=== PATIENT | female | born 1950 | race Caucasian/White ===

== ENCOUNTER 2017-02-18 14:32 | Inpatient (IN) | payer OTHER, MEDICARE ==
[~2017-02-18] VITALS: Ht 167.6 cm; Wt 59.2 kg
[~2017-02-18 14:32] MED LIST: CARI350T20 PO; DULO1CAP3 PO
[2017-02-25] MEDS ORDERED: CALCTAB80 PO (12:01)
[2017-02-25] MEDS ORDERED: DENO60P SQ (12:01)
[2017-02-25] MEDS ORDERED: HYDR-3583 PO (12:01)
[2017-02-25] MEDS ORDERED: CLON2TAB PO (12:01)
[2017-02-25] MEDS ORDERED: CENTTAB PO (12:01)
[2017-02-25] MEDS ORDERED: DICL50TA PO (12:01)
[2017-02-28] MEDS ORDERED: ceFAZolin 2 GM PREMIX 50 ML ONE (05:52)
[2017-02-28] MEDS ORDERED: VANCOMYCIN HCL 1000 MG VIAL ONE (05:53)
[2017-02-28] MEDS ORDERED: SODIUM CHLOR 0.9% 250 ML INJ 250 ML ONE (05:53)
[2017-02-28 06:03] VITALS: BP 140/88; PULSE 67; RESP 20; TEMP 98; O2SAT 100
[2017-02-28] MEDS ORDERED: GENTAMICIN SULFATE 80 MG/2 ML VIAL ONE (06:05)
[2017-02-28] MEDS ORDERED: CHLORHEXIDINE GLUCONATE 2 % 1 PACK (2 CLOTHS) TOPICAL PRN (06:15)
[2017-02-28] MEDS ORDERED: SODIUM CHLORID 0.9% 500 ML IV PRN (06:15)
[2017-02-28] MEDS ORDERED: LACTATED RINGER'S 1000 ML IV PRN (06:15)
[2017-02-28] MEDS ORDERED: POVIDONE IODINE 5% (ANTISEPSIS KIT) 4 APPLICATIONS EACH NARE PRN (06:15)
[2017-02-28] MEDS ORDERED: METOPROLOL TARTRATE 25 MG TAB PO PRN (06:15)
[2017-02-28] MEDS ORDERED: INSULIN HUMAN REGULAR 1,000 UNITS/10 ML VIAL SQ PRN (06:15)
[2017-02-28] MEDS ORDERED: SODIUM CHLORIDE 0.9% IV SCH (06:30)
[2017-02-28] MEDS ORDERED: ceFAZolin 2 GM PREMIX 50 ML IV SCH (06:30)
[2017-02-28] MEDS ORDERED: VANCOMYCIN 1000 MG/NS 250 ML (for <70 kg) IV SCH ×2 (06:30)
[2017-02-28] MEDS ORDERED: EXPAREL PERI-ARTICULAR INJECTION (TOTAL VOL. 60 ML) P-ARTICULR SCH ×2 (06:30)
[2017-02-28] MEDS ORDERED: POVIDONE IODINE 7.5% SCRUB 118 ML BOTTLE TOPICAL SCH (06:30)
[2017-02-28] MEDS ORDERED: TRANEXAMIC PERI-ARTICULAR 3,000 MG/NS 100 ML P-ARTICULR SCH ×2 (06:30)
[2017-02-28] MEDS ORDERED: CHLORHEXIDINE GLUCONATE 4% SOLN 120 ML BTL TOPICAL SCH (06:30)
[2017-02-28] MEDS ORDERED: TRANEXAMIC ACID IV SCH (06:30)
[2017-02-28] MEDS ORDERED: MIDAZOLAM HCL 5 MG/5 ML VIAL ONE (06:41)
[2017-02-28] MEDS ORDERED: DEXAMETHASONE SOD PHOS PF 10 MG/ML VIAL ONE (06:43)
[2017-02-28] MEDS ORDERED: DEXAMETHASONE SOD PHOS 20 MG/5 ML VIAL ONE (06:44)
[2017-02-28] MEDS ORDERED: fentaNYL CITRATE 250 MCG/5 ML AMP ONE (06:52)
[2017-02-28] MEDS ORDERED: ACETAMINOPHEN 1000 MG/100 ML VIAL IV ONE (06:53)
[2017-02-28] MEDS: SODIUM CHLOR 0.9% 1000 ML INJ 1,000 ML IV SCH ×2 (07:00→17:50)
[2017-02-28] MEDS ORDERED: HYDR-3288 PO (07:11)
[2017-02-28] MEDS ORDERED: ENOX30P SQ (07:11)
[2017-02-28] MEDS ORDERED: ASPI81TA2 PO (07:12)
[2017-02-28] MEDS ORDERED: ACETAMINOPHEN/HYDROcodone 325 MG/7.5 MG TAB PO PRN (07:15)
[2017-02-28] MEDS ORDERED: NALOXONE HCL 0.4 MG/ML AMP IV PRN (07:15)
[2017-02-28] MEDS ORDERED: BISACODYL 10 MG SUPP RECTAL PRN (07:15)
[2017-02-28] MEDS ORDERED: ZOLPIDEM TARTRATE 5 MG TAB PO PRN (07:15)
[2017-02-28] MEDS ORDERED: diphenhydrAMINE HCL 50 MG/ML VIAL IV PRN (07:15)
[2017-02-28] MEDS ORDERED: ONDANSETRON HCL 4 MG/2 ML VIAL IVP PRN (07:15)
[2017-02-28] MEDS ORDERED: Post-op Orders (for Pharmacy) MISC XX ONE (07:15)
[2017-02-28] MEDS ORDERED: HYDROmorphone HCL PF 2 MG/ML VIAL IV PRN (07:15)
[2017-02-28] MEDS ORDERED: SODIUM CHLORIDE 0.9% FLUSH 10 ML FLUSH IV FLUSH PRN (07:30)
[2017-02-28] MEDS ORDERED: HYDROmorphone HCL PF 2 MG/ML VIAL ONE (08:42)
[2017-02-28] MEDS: DULoxetine HCl DR 60 MG CAP PO SCH (09:00)
[2017-02-28] MEDS: SODIUM CHLORIDE 0.9% FLUSH 10 ML FLUSH IV FLUSH SCH ×2 (09:00→21:00)
[2017-02-28] MEDS ORDERED: *morphine SULFATE 8 MG/ML PERIprocedure ONLY ONE ×3 (09:32→10:23)
[2017-02-28] MEDS ORDERED: *MEPERIDINE 25 MG INJ VIAL PERIprocedural Use ONLY ONE (09:38)
--- NOTE | 2017-02-28 10:14 | RADRPT ---
EXAM DATE/TIME: 02/28/2017 09:41 [facility] COMPARISON: No previous studies available for comparison. INDICATIONS : Post hip replacement. MEDICAL HISTORY : None. SURGICAL HISTORY : Total right hip. ENCOUNTER: Initial ACUITY: 1 day PAIN SCORE: Non-responsive. LOCATION: Left hip. FINDINGS: The patient is status post a total hip arthroplasty with a bipolar prosthesis. Prosthesis is well-sea pancho. Alignment is anatomic. A fracture is not appreciated. Previous arthroplasty is present on the r ight. CONCLUSION: Anatomic alignment. Celio Jeronimo MD FACR Board Certified Radiologist. This report was verified electronically.
--- NOTE | 2017-02-28 11:13 | EKG ---
Date Performed: 02/28/2017 Time Performed: 06:14:13 PTAGE: 66 years EKG: Sinus rhythm NORMAL ECG PREVIOUS TRACING : 09/19/2015 15.13 DOCTOR: Deep Charles Interpretating Date/Time 02/28/2017 11:12:00
[2017-02-28 12:00] VITALS: BP 112/66; PULSE 88; RESP 18; TEMP 96.3; O2SAT 99
[2017-02-28] MEDS ORDERED: NEOSTIGMINE 3 MG/3 ML SYR IV ONE (12:00)
[2017-02-28] MEDS ORDERED: LACTATED RINGER'S 1000 ML INJ 2,000 ML IV ONE (12:00)
[2017-02-28] MEDS ORDERED: ONDANSETRON HCL 4 MG/2 ML VIAL IV PUSH ONE (12:00)
[2017-02-28] MEDS ORDERED: PROPOFOL 200 MG/20 ML AMP IV ONE (12:00)
[2017-02-28] MEDS ORDERED: ePHEDrine/NS 25 MG/5 ML SYR IV ONE (12:00)
[2017-02-28] MEDS ORDERED: PHENYLEPH/NS 1000 MCG/10 ML SYR IV ONE (12:00)
[2017-02-28] MEDS: CARISOPRODOL 350 MG TAB PO SCH ×2 (12:13→17:50)
--- NOTE | 2017-02-28 13:44 | PD.CONS ---
HPI Service [facility] Consult Requested By Orthopedic surgery. Reason for Consult Medical management. Primary Care Physician Fay Tabor MD Diagnoses: (1) Osteoarthritis of right hip History of Present Illness Ms. Osman is a pleasant 66 year old female with a history of osteoporosis , osteoarthritis, lumbar fusion who was admitted to the hospital for an elective right total hip arthroplasty. Patient has had extensive conservative management. However, due to persistent pain, patient decided to undergo right total hip arthroplasty. At the time of this interview, patient is sitting in her chair. Denies any changes in bowel or bladder habits. She has Johnson cath which she would like to get rid off. She is ambulating some with assistance. No fever, chills. Denies any chest pain, shortness of breath, nausea, vomiting or abdominal pain. Review of Systems Except as stated in HPI: all other systems reviewed are Neg Past Family Social History Allergies: Coded Allergies: No Known Allergies (Verified , 02/25/17) Past Medical History Osteoarthritis, spondylolisthesis, anxiety/depression Past Surgical History Right hip prosthesis Tonsillectomy T&A hemmoroidecetomy 1980 Reported Medications Current Medications Medications (Trade) Dose Ordered Sig/Tomás Route Start Time Stop Time Status Last Admin Lactated Ringer's 1,000 ml @ 30 mls/hr Q24H PRN IV 02/28/17 06:15 03/03/17 06:14 02/28/17 05:55 (NS 500 ml Inj) 500 ml @ 30 mls/hr [id number] PRN IV 02/28/17 06:15 03/03/17 06:14 (Betadine 7.5% Scrub) 1 applic ONCE TOPICAL 02/28/17 06:30 03/03/17 06:29 (Hibiclens 4% Top Soln) 1 applic ONCE TOPICAL 02/28/17 06:30 03/03/17 06:29 (Soma) 350 mg TID PO 02/28/17 09:00 02/28/17 17:50 (KlonoPIN) 2 mg HS PO 02/28/17 21:00 02/28/17 21:14 Duloxetine HCl 60 mg 60 mg DAILY PO 02/28/17 09:00 (NS 1000 ml Inj) 1,000 ml @ 100 mls/hr Q10H IV 02/28/17 07:00 02/28/17 17:50 (NS Flush) 2 ml UNSCH PRN IV FLUSH 02/28/17 07:30 Sodium Chloride 2 ml 2 ml BID IV FLUSH 02/28/17 09:00 (Ancef Inj/NS Inj) 100 ml @ 200 mls/hr Q6H IV 02/28/17 12:00 03/01/17 00:29 02/28/17 17:50 (Lovenox Inj) 30 mg Q24H SQ 02/28/17 21:00 02/28/17 21:14 (Dilaudid Pf Inj) 1 mg Q3H PRN IV 02/28/17 07:15 ([place] 7.5-325 Mg) 1 tab Q4H PRN PO 02/28/17 07:15 ([place] 7.5-325 Mg) 2 tab Q4H PRN PO 02/28/17 07:15 02/28/17 18:56 (Theragran M Tab) 1 tab BID PO 03/01/17 21:00 04/30/17 20:59 (Zofran Inj) 4 mg Q6H PRN IVP 02/28/17 07:15 (Colace) 100 mg BID PO 03/01/17 21:00 (Ambien) 5 mg HS PRN PO 02/28/17 07:15 (Dulcolax Supp) 10 mg DAILY PRN RECTAL 02/28/17 07:15 (Narcan Inj) 0.4 mg UNSCH PRN IV 02/28/17 07:15 (Benadryl Inj) 25 mg Q6H PRN IV 02/28/17 07:15 Family History Mother - lung cancer Father - Myocardial infarction Brothers - MA, bladder cancer. Social History Does not smoke but admits to drinking wine with dinner. Physical Exam Vital Signs Vital Signs Date Time Temp Pulse Resp B/P Pulse Ox O2 Delivery O2 Flow Rate FiO2 02/28/17 12:00 96.3 88 18 112/66 99 02/28/17 11:07 Nasal Cannula 2.00 02/28/17 11:00 98.0 84 16 97/56 99 Nasal Cannula 2 02/28/17 10:52 84 16 97/56 99 Nasal Cannula 2 02/28/17 10:45 89 16 104/58 99 Nasal Cannula 2 02/28/17 10:30 84 16 97/56 99 Nasal Cannula 2 02/28/17 10:15 82 16 110/57 96 Nasal Cannula 2 02/28/17 10:00 80 16 117/60 98 Nasal Cannula 2 02/28/17 09:45 82 16 105/58 99 Nasal Cannula 2 02/28/17 09:30 74 16 121/63 100 Nasal Cannula 2 02/28/17 09:18 98.0 84 16 113/68 100 Nasal Cannula 2 02/28/17 06:03 98.0 67 20 140/88 100 Physical Exam GENERAL: This is a well-nourished, well-developed patient, in no apparent distress. SKIN: No rashes, ecchymoses or lesions. Warm and dry. HEAD: Atraumatic. Normocephalic. No temporal or scalp tenderness. EYES: Pupils equal round and reactive. No injection or drainage. ENT: Nose without bleeding, purulent drainage or septal hematoma. Airway patent. NECK: Trachea midline. No lymphadenopathy. Supple, nontender, no meningeal signs. CARDIOVASCULAR: Regular rate and rhythm without murmurs, gallops, or rubs. No JVD. RESPIRATORY: Clear to auscultation. Breath sounds equal bilaterally. No wheezes , rales, or rhonchi. GASTROINTESTINAL: Abdomen soft, non-tender, nondistended. No guarding. MUSCULOSKELETAL: Extremities without clubbing, cyanosis, or edema. s/o right total hip arthroplasty. Able to move lower ext. NEUROLOGICAL: Awake and alert. Cranial nerves II through XII intact. No focal neurological deficits. Normal speech. Laboratory Laboratory Tests Test 02/28/17 05:55 Blood Type A POSITIVE Antibody Screen NEGATIVE Imaging Last Impressions Hip and Pelvis X-Ray 02/28/17 0706 Signed Impressions: Service Date/Time: Tuesday, February 28, 2017 09:41 - CONCLUSION: Anatomic alignment. Celio Jeronimo MD Assessment and Plan Problem List: (1) Osteoarthritis of right hip ICD Code: M16.11 Status: Acute Assessment and Plan Ms. Osman is a pleasant 66 year old who underwent right total hip arthroplasty on . Hospitalist service was consulted for medical management. Osteoarthritis of right hip - s/p right MAVIS - Continue [place] and Dilaudid when necessary for pain. - Colace for bowel regimen. Anxiety, depression - Continue clonazepam 2 mg daily at bedtime and Cymbalta 60 mg by mouth daily. Insomnia - continue zolpidem 5 mg by mouth daily at bedtime when necessary. Thank you for the consult. We'll continue to follow this patient with you. Full code, Kaela. Sean Ramirez DO February 28, 2017 1:44 pm
--- NOTE | 2017-02-28 13:49 | RADRPT ---
EXAM DATE/TIME: 02/28/2017 07:20 [facility] COMPARISON: No previous studies available for comparison. INDICATIONS : Left anterior hip replacement. MEDICAL HISTORY : Arthritis. Smoker. SURGICAL HISTORY : Total hip replacement. ENCOUNTER: Subsequent ACUITY: 1 day PAIN SCORE: Non-responsive. LOCATION: Left hip. FINDINGS: The patient is status post a total hip arthroplasty with a bipolar prosthesis. Prosthesis is well-sea pancho. Alignment is anatomic. A fracture is not appreciated. CONCLUSION: Anatomic alignment. Celio Jeronimo MD FACR Board Certified Radiologist. This report was verified electronically.
[2017-02-28] MEDS: ACETAMINOPHEN/HYDROcodone 325 MG/7.5 MG TAB PO PRN ×2 (14:52→18:56)
[2017-02-28 16:00] VITALS: BP 145/84; PULSE 88; RESP 18; TEMP 97.7; O2SAT 95
[2017-02-28 19:36] VITALS: BP 102/52; PULSE 86; RESP 18; TEMP 96.2; O2SAT 98
[2017-02-28] MEDS ORDERED: clonazePAM 1 MG TAB PO SCH (21:00)
[2017-02-28] MEDS ORDERED: ENOXAPARIN SODIUM 30 MG/0.3 ML SYRINGE SQ SCH (21:00)
[2017-02-28 23:51] VITALS: BP 101/55; PULSE 86; RESP 17; TEMP 97.2; O2SAT 96
[2017-03-01 03:26] VITALS: BP 122/66; PULSE 78; RESP 17; TEMP 96.7; O2SAT 96
[2017-03-01 07:16] LABS: HEMATOCRIT 28.3 % (35.0-46.0); MEAN CELL VOLUME 97.6 FL (80.0-100.0); MEAN CORPUSCULAR HEMOGLOBIN 32.6 PG (27.0-34.0); MEAN CORPUSCULAR HGB CONC 33.4 % (32.0-36.0); PLATELET COUNT 151 TH/MM3 (150-450); RED CELL DISTRIBUTION WIDTH 13.3 % (11.6-17.2); REVIEW FLAG FINAL
[2017-03-01 07:45] LABS: BICARBONATE 31.9 MEQ/L (21.0-32.0); POTASSIUM 3.9 MEQ/L (3.5-5.1)
[2017-03-01 08:00] VITALS: BP 132/80; PULSE 85; RESP 18; TEMP 97.6; O2SAT 95
--- NOTE | 2017-03-01 08:12 | PD.ORT.PN ---
Subjective Post Op Day #: 1 Subjective Remarks pain under control. ready to go home. Objective Vitals Vital Signs Date Time Temp Pulse Resp B/P Pulse Ox O2 Delivery O2 Flow Rate FiO2 03/01/17 07:27 Room Air 03/01/17 03:26 96.7 78 17 122/66 96 02/28/17 23:51 97.2 86 17 101/55 96 02/28/17 19:36 96.2 86 18 102/52 98 02/28/17 16:00 97.7 88 18 145/84 95 02/28/17 12:00 96.3 88 18 112/66 99 02/28/17 11:07 Nasal Cannula 2.00 02/28/17 11:00 98.0 84 16 97/56 99 Nasal Cannula 2 02/28/17 10:52 84 16 97/56 99 Nasal Cannula 2 02/28/17 10:45 89 16 104/58 99 Nasal Cannula 2 02/28/17 10:30 84 16 97/56 99 Nasal Cannula 2 02/28/17 10:15 82 16 110/57 96 Nasal Cannula 2 02/28/17 10:00 80 16 117/60 98 Nasal Cannula 2 02/28/17 09:45 82 16 105/58 99 Nasal Cannula 2 02/28/17 09:30 74 16 121/63 100 Nasal Cannula 2 02/28/17 09:18 98.0 84 16 113/68 100 Nasal Cannula 2 I/O 02/28/17 02/28/17 02/28/17 03/01/17 03/01/17 03/01/17 07:00 15:00 23:00 07:00 15:00 23:00 Intake Total 2879 ml 360 ml 240 ml Output Total 575 ml 450 ml Balance 2304 ml -90 ml 240 ml Intake Oral 720 ml 360 ml 240 ml IV Total 459 ml Other 1700 ml Output Urine Total 75 ml 450 ml Estimated Blood Loss 400 ml Other 100 ml # Voids 2 # Bowel Movements 0 0 Result Diagram: 03/01/1744 03/01/1744 Objective Remarks in bed, nad incision no erythema, no drainage neg homans nvi Assessment & Plan Ortho Post Op Day #: 1 Problem List: Assessment and Plan s/p L MAVIS anterior approach wbat daily dressing changes lovenox rx in chart d/c planning home with [facility] and pt - cleared today f/up dr. winston 2 weeks Wayne Churchill March 01, 2017 08:12
--- NOTE | 2017-03-01 08:14 | HHI.DCPOC ---
Discharge Care Plan Diagnosis: (1) Primary localized osteoarthrosis, pelvic region and thigh Your Health Problems Are: Difficulty with ADL Goals to Promote Your Health * To prevent worsening of your condition and complications * To maintain your health at the optimal level Directions to Meet Your Goals Take your medications as prescribed Follow your dietary instruction Follow activity as directed Keep your appointments as scheduled Take your immunizations and boosters as scheduled If your symptoms worsen call your PCP, if no PCP go to Urgent Care Center or Emergency Room Smoking is Dangerous to Your Health. Avoid second hand smoke Call the 24-hour hour crisis hotline for domestic abuse at Wayne Churchill March 01, 2017 08:14
--- NOTE | 2017-03-01 08:15 | HHI.FF ---
Face to Face Verification Diagnosis: (1) Primary localized osteoarthrosis, pelvic region and thigh Physical Therapy Gait training, Safety evaluation, Transfer training, bed to chair Hip: Total hip, Protocol: Left Left LE Weight Bearing: WB as tolerated Nursing RN: 3 days/week x 2 weeks Nursing: Kaela teaching, Dressing changes Dressing Changes: Daily dressing change I have seen patient Narcisa Osman on 03/01/17. My clinical findings support the need for the requested home health care services because: Limited ability to care for self High risk of falls I certify that my clinical findings support that this patient is homebound because: Post-op weakness Unsteady gait/balance Wayne Churchill March 01, 2017 08:15
[2017-03-01] MEDS: SODIUM CHLORIDE 0.9% FLUSH 10 ML FLUSH IV FLUSH SCH (08:17)
[2017-03-01] MEDS: DULoxetine HCl DR 60 MG CAP PO SCH (08:17)
[2017-03-01] MEDS: CARISOPRODOL 350 MG TAB PO SCH (08:17)
[2017-03-01] MEDS: ACETAMINOPHEN/HYDROcodone 325 MG/7.5 MG TAB PO PRN (08:22)
--- NOTE | 2017-03-01 09:34 | HHI.PR ---
Subjective Remarks Follow-up for left total hip arthroplasty. Patient is currently doing well. Denies any acute concerns. Denies chest pain, shortness of breath, fever or chills. Orthopedic surgery cleared for discharge home with home health. Objective Vitals Vital Signs Date Time Temp Pulse Resp B/P Pulse Ox O2 Delivery O2 Flow Rate FiO2 03/01/17 08:00 97.6 85 18 132/80 95 03/01/17 07:27 Room Air 03/01/17 03:26 96.7 78 17 122/66 96 02/28/17 23:51 97.2 86 17 101/55 96 02/28/17 19:36 96.2 86 18 102/52 98 02/28/17 16:00 97.7 88 18 145/84 95 02/28/17 12:00 96.3 88 18 112/66 99 02/28/17 11:07 Nasal Cannula 2.00 02/28/17 11:00 98.0 84 16 97/56 99 Nasal Cannula 2 02/28/17 10:52 84 16 97/56 99 Nasal Cannula 2 02/28/17 10:45 89 16 104/58 99 Nasal Cannula 2 02/28/17 10:30 84 16 97/56 99 Nasal Cannula 2 02/28/17 10:15 82 16 110/57 96 Nasal Cannula 2 02/28/17 10:00 80 16 117/60 98 Nasal Cannula 2 02/28/17 09:45 82 16 105/58 99 Nasal Cannula 2 I/O 02/28/17 02/28/17 02/28/17 03/01/17 03/01/17 03/01/17 07:00 15:00 23:00 07:00 15:00 23:00 Intake Total 2879 ml 360 ml 240 ml Output Total 575 ml 450 ml Balance 2304 ml -90 ml 240 ml Intake Oral 720 ml 360 ml 240 ml IV Total 459 ml Other 1700 ml Output Urine Total 75 ml 450 ml Estimated Blood Loss 400 ml Other 100 ml # Voids 2 # Bowel Movements 0 0 Result Diagram: 03/01/17 0544 03/01/17 0544 Imaging Last Impressions Hip and Pelvis X-Ray 02/28/17 0706 Signed Impressions: Service Date/Time: Tuesday, February 28, 2017 09:41 - CONCLUSION: Anatomic alignment. Celio Jeronimo MD Hip X-Ray 02/28/17 0000 Signed Impressions: Service Date/Time: Tuesday, February 28, 2017 07:20 - CONCLUSION: Anatomic alignment. Celio Jeronimo MD Objective Remarks GENERAL: SKIN: Warm and dry. HEAD: Normocephalic. EYES: No scleral icterus. No injection or drainage. NECK: Supple, trachea midline. No JVD or lymphadenopathy. CARDIOVASCULAR: Regular rate and rhythm without murmurs, gallops, or rubs. RESPIRATORY: Breath sounds equal bilaterally. No accessory muscle use. GASTROINTESTINAL: Abdomen soft, non-tender, nondistended. MUSCULOSKELETAL: No cyanosis, or edema. Status post left total hip arthroplasty. BACK: Nontender without obvious deformity. No CVA tenderness. Procedures Left total hip arthroplasty. A/P Problem List: (1) Osteoarthritis of right hip ICD Code: M16.11 Status: Acute Assessment and Plan Ms. Osman is a pleasant 66 year old who underwent right total hip arthroplasty on . Hospitalist service was consulted for medical management. Osteoarthritis of right hip - s/p right MAVIS - Continue [place] and Dilaudid when necessary for pain. - Colace for bowel regimen. Anxiety, depression - Continue clonazepam 2 mg daily at bedtime and Cymbalta 60 mg by mouth daily. Insomnia - continue zolpidem 5 mg by mouth daily at bedtime when necessary. Patient is being discharged home with home health. Full code, Kaela. Sean Ramirez DO March 01, 2017 9:34 am
--- NOTE | 2017-03-01 13:34 | MP ---
cc: CCList DATE OF SURGERY: 02/28/2017 PREOPERATIVE DIAGNOSIS: Left hip osteoarthrosis. POSTOPERATIVE DIAGNOSIS: Left hip osteoarthrosis. OPERATION: Left total hip arthroplasty. SURGEON: Dr. Wayne Melgoza. CABLE SPOOLER: ANIL Alvarez ANESTHESIA General. ESTIMATED BLOOD LOSS: 250 CC COMPLICATIONS NONE. IMPLANTS USED: DePuy Corail size 11 Press-Fit standard offset femoral stem size 50. Solid pinnacle Gription cup, 32 mm ceramic head +9 neck, neutral highly crossing polyethylene liner. JUSTIFICATION: This patient is a 66-year-old female history of severe end-stage osteoarthritis involving the left hip. She has severe disabling pain with standing, walking ambulation with activities and severe pain at rest. Pain interferes activities of daily living. Her symptoms been progressive and non responsive to greater than 3 months of conservative treatment which include medication therapy, ambulatory assisted aids, home exercise program, activity modification. The patient is not overweight. X-RAYS Left hip reveal severe end-stage osteoarthritis, [id number] joint space narrowing, subchondral sclerosis, subchondral cyst osteophyte formation and superior subluxation. The patient counseled as and alternative total hip arthroplasty. The risks custody to which include but limited to bleeding, flexion, damage to nerves, blood vessels, pain, stiffness, dislocation, leg length discrepancies, blood clots, pulmonary embolism and even . The patient's pain is severe. She favored benefits and risks and did wish to proceed with surgery. PROCEDURE IN DETAIL: A written consent was obtained. The patient identified by name, taken to the operating room and placed supine on the table, general anesthesia was administered as well as 2 grams of IV Ancef and one gram of IV vancomycin. The left and right feet were placed in padded traction boots, left hip and left lower extremity prepped and draped using isopropyl alcohol, Hibiclens solution and DuraPrep solution. After time-out was performed a large incision was made over the anterior aspect left hip. The fascial layer was incised. Dissection was carried over tensor fascia gretel beneath rectus femoris to allow exposure of the anterior hip capsule. A capsulotomy incision was performed an oscillating saw was used for used for a femoral neck cut. The patient has severe osteoporosis of bone. The osteoarthritic diseased femoral head neck component was removed. The patient also showed evidence of pathologic synovium which was also excised. A 10 blade scalpel use excise the labrum. Sequential reaming began at size 46, carried to size 57 plate cell pinnacle Daniel cup was implanted approximately 45 degrees of abduction and 10 degrees anteversion of the personal fixation after insertion of the cup a screw hole eliminator placed followed by the neutral liner was impacted place and test for stability. Attention was turned femur where the leg was externally rotated extended and 80, adducted a box cutting ostium was used to gain entrance in the intramedullary canal femur. Again the patient has severe ostial for osteoporosis of bone. Sequential broaching was carried to size 11 followed by calcar planer. Trial head neck combinations were evaluated and final components implanted with a +9 neck 32 head. Fluoroscopic imaging showed appropriate implantation of components were well leg could achieve X rotation 70 degrees extension all the down to the ground but evidence of interest instability soft tissue tension felt appropriate surgical wounds thoroughly irrigated with sterile saline pulse lavage antibiotic. IMPRESSION Impregnated solution. The fascia was closed all with #1 Vicryl suture. The site 2-0 Vicryl suture. Skin was closed Dermabond. Sterile dressing applied. The patient on procedure with no intraoperative noted. Augustus Churchill physician assistant purchasing manager was present during seizure to include patient positioning of the patient, the medical necessity of physician assistant purchasing manager indicated due to the complexity of the procedure. He assisted with manipulation of the leg and also retraction of muscle tendon bone neurovascular structures, he assisted with preparation of bone and implantation of the prosthetic replacement. MD GIFTY Cole/rosa /9:04 AM /11:43 AM
[2017-03-01] MEDS ORDERED: MULTIVITAMINS/MINERALS THERAPEUTIC TAB PO SCH (21:00)
[2017-03-01] MEDS ORDERED: DOCUSATE SODIUM 100 MG CAP PO SCH (21:00)
--- NOTE | 2017-03-06 05:27 | MD ---
cc: MORENA MELGOZA ADMISSION DATE: 02/28/2017 DISCHARGE DATE: 03/01/2017 ADMISSION DIAGNOSIS Severe degenerative osteoarthritis of left hip. DISCHARGE DIAGNOSIS Severe degenerative osteoarthritis of left hip. HISTORY OF PRESENT ILLNESS Ms. Osman is a 66-year-old female who presented to the [facility] for evaluation by Dr. Morena Melgoza regarding her severe and progressive left hip pain. The patient states the pain has been progressive for numerous years but is currently inhibiting her activities of daily living. She states her left hip pain is a constant severe aching sensation and aggravated weightbearing activities. She notes she has no alleviating factors, although in the past she has tried medications, physical therapy, home exercise program. The patient is not overweight. She has even had injections without relief of symptoms. She does have a history of right total hip arthroplasty with good success. The patient has x-ray evidence of severe degenerative osteoarthritis of the left hip. While in the office the patient was counseled on her diagnosis and treatment options, risks, benefits, indications were all discussed in great detail. The patient did elect to proceed with surgical intervention to include a left total hip arthroplasty. Date of surgery 02/28/2017, left total hip arthroplasty, anterior approach. Postop after surgery The patient admitted to [facility] where she received appropriate medical management, pain control, DVT prophylaxis as well as physical therapy. Discharge Once being discharged from the hospital the patient is cleared to go home where she will receive home health care and home physical therapy. She is in stable condition. She may weightbear as tolerated with anterior hip precautions. She is to receive daily dressing changes and has been instructed on appropriate wound care management. Patient has been provided prescriptions for pain control as well as DVT prophylaxis medication. She has also been provided a follow-up appointment see Dr. Morena Melgoza in the office in approximately 2 weeks from date of surgery. The patient has asked appropriate questions which have been answered. The patient is cleared for discharge. Dictated by: ANIL Campbell MD GIFTY Cole/AYLIN /8:19 AM /5:19 AM
== END 2017-03-01 11:49 | disposition home health service (06) | DRG 470 ==
LOC: HSDI 02-28 05:31 → N06A 02-28 11:09
PROVIDERS: ADMIT Orthopaedic Surgery Sports Medicine; ATTEND Orthopaedic Surgery Sports Medicine
PROC: 0SRB04A Replacement of Left Hip Joint with Ceramic on Polyethylene Synthetic Substitute, Uncemented, Open Approach (ICD-10-PCS; principal; 2017-02-28 06:45)
DX: M16.12 Unilateral primary osteoarthritis, left hip (principal); Z96.641 Presence of right artificial hip joint; M81.0 Age-related osteoporosis without current pathological fracture; F32.9 Major depressive disorder, single episode, unspecified; F41.9 Anxiety disorder, unspecified; G47.00 Insomnia, unspecified; Z98.1 Arthrodesis status
CPT/HCPCS: 73502; 76000; 80048; 85027; 86850; 86900; 86901; 93005; 94150; C1776; C9290; J0131; J0690; J1100; J1170; J1580; J1650; J2175; J2250; J2270; J2370; J2405; J2710; J3010; J3370; J7030; J7050; J7120